=== PATIENT | female | born 1995 | race Caucasian/White ===

== ENCOUNTER → 2016-09-05 | Outpatient (CLI) | payer BC | LOC: KOH-I 08-27 08:00 | DX: R10.11 Right upper quadrant pain (principal) | CPT/HCPCS: 76705 ==

== ENCOUNTER 2016-09-23 15:53 | Emergency (ER) | payer OTHER ==
[2016-09-23 17:34] LABS: HEMOGLOBIN 14.3 gm/dl (12.3-15.3); RED BLOOD COUNT 4.94 M/UL (4.00-5.10); WHITE BLOOD COUNT 13.2 K/UL (4.5-11.0)
[2016-09-23 17:52] LABS: BUN/CREATININE RATIO 20 (0-10)
== END 2016-09-23 20:10 | disposition home or self-care (01) ==
LOC: ER1 15:53
PROVIDERS: Emergency Medicine
DX: S42.401A Unspecified fracture of lower end of right humerus, initial encounter for closed fracture (principal); F17.200 Nicotine dependence, unspecified, uncomplicated; Y92.410 Unspecified street and highway as the place of occurrence of the external cause; V43.62XA Car passenger injured in collision with other type car in traffic accident, initial encounter; Z88.8 Allergy status to other drugs, medicaments and biological substances
CPT/HCPCS: 36415; 71010; 73060; 73090; 73110; 80053; 83690; 84703; 85025; 85610; 85730; 96374; 96375; 99284; J2270; J2405

== ENCOUNTER → 2021-02-17 | Outpatient (CLI) | payer BC ==
[~2021-02-17] MED LIST: AUGMENTIN 875-1 EACH PO; COLACE 100MG C100 MG PO; NORCO 7.5-3251 EACH PO; OXYCODONE-ACET1 EAC1 PO; PERCOCET 5/325 T1 EA PO; PHENERGAN 25 MG25 M1 PO; ZOFRAN ODT 4 MG4 MG GT; ZOFRAN ODT 4 MG4 MG PO
[2021-02-17 07:53] LABS: HEMOGLOBIN 14.5 gm/dl (12.3-15.3); RED BLOOD COUNT 5.13 M/UL (4.00-5.10); WHITE BLOOD COUNT 10.4 K/UL (4.5-11.0)
[2021-02-17 08:14] LABS: BUN/CREATININE RATIO 22 (0-10)
[2021-02-18 08:08] LABS: VITAMIN D, 25-HYDROXY 13.1 ng/mL (30.0-100.0)
== END ==
LOC: LAB 07:25
PROVIDERS: Nurse Practitioner
DX: R53.82 Chronic fatigue, unspecified (principal); F32.A Depression, unspecified; F41.9 Anxiety disorder, unspecified
CPT/HCPCS: 36415; 80053; 80061; 81001; 83036; 84436; 84443; 84480; 85025

== ENCOUNTER → 2021-02-25 | Outpatient (CLI) | payer BC ==
[2021-02-26 08:13] LABS: HBSAG SCREEN Negative (Negative); HEP A AB, IGM Negative (Negative); HEP B CORE AB, IGM Negative (Negative); HEP C VIRUS AB 0.1 (0.0-0.9)
== END ==
LOC: US 08:26
PROVIDERS: Nurse Practitioner
DX: R94.5 Abnormal results of liver function studies (principal); K76.0 Fatty (change of) liver, not elsewhere classified
CPT/HCPCS: 36415; 76705; 80074; 80076; 82150; 83690